=== PATIENT | male | born 1980 | race American Indian/Alaskan Native ===

== ENCOUNTER 2018-12-16 11:45 | Emergency (ER) | payer SELFPAY ==
[2018-12-16 12:02] VITALS: BP 124/77
--- NOTE | 2018-12-16 12:11 | Emergency Department Report ---
Blank Doc - Documentation Documentation: 38 y o male presents to ED cc of fever, cough, stuffy nose and ear draining x yesterday morning. cc of left sided/throat jaw pain cxr Acc to evalutae
--- NOTE | 2018-12-16 12:33 | Emergency Department Report ---
Minor Respiratory - HPI Chief Complaint: Upper Respiratory Infection Stated Complaint: CONGESTION Time Seen by Provider: 12/16/18 11:59 Duration: 2 Days Pain Location: Chest Severity: moderate Minor Respiratory: Yes Rhinorrhea, Yes Able to Tolerate Fluids, Yes Cough, Yes Shortness of Breath, Yes Fever, No Sore Throat, No Ear Pain, No Sick Contacts, No Hemoptysis, No Chest Pain Other History: Patient is a heavy smoker. Patient is coughing productive of yellow to brown sputum. Patient also states he's had fevers and chills. ED Review of Systems ROS: Stated complaint: CONGESTION Other details as noted in HPI Comment: All other systems reviewed and negative ED Past Medical Hx - Social History Smoking Status: Current Every Day Smoker Substance Use Type: Alcohol, Marijuana - Medications Home Medications: Home Medications Medication Instructions Recorded Confirmed Last Taken Type HYDROcodone/ACETAMINOPHEN [[place] 1 each PO Q6HR #20 tablet 02/06/14 Unknown Rx 5/325 Tablet] Ibuprofen [Motrin] 600 mg PO Q8H PRN #60 tablet 02/06/14 Unknown Rx Acetaminophen/Codeine [Tylenol #3] 1 tab PO Q6H PRN #15 tab 11/03/15 Unknown Rx Penicillin Vk [Veetids TAB] 500 mg PO QID #40 tablet 11/03/15 Unknown Rx ALBUTEROL Inhaler (OR & NICU) 2 puff IH QID PRN #1 inhalation 12/16/18 Unknown Rx [ProAir HFA Inhaler] Azithromycin [Zithromax] 250 mg PO DAILY #6 tablet 12/16/18 Unknown Rx guaiFENesin/CODEINE [Robitussin AC] 5 ml PO TID PRN #100 oral.liqd 12/16/18 Unknown Rx predniSONE [Deltasone] 20 mg PO QDAY #5 tab 12/16/18 Unknown Rx Minor Respiratory Exam - Exam General: Vital signs noted. No distress. Alert and acting appropriately. HEENT: Yes Moist Mucous Membranes, No Pharyngeal Erythema, No Pharyngeal Exudates, No Rhinorrhea, No Conjuctival Injection, No Frontal Tenderness, No Maxillary Tenderness Ear: Neither TM Bulge, Neither TM Erythema, Neither EAC Pain, Neither EAC Discharge Neck: Yes Supple, No Adenopathy Lungs: Yes Good Air Exchange, Yes Cough, No Wheezes, No Ronchi, No Stridor, No Labored Respirations, No Retractions, No Use of Accessory Muscles, No Other Abnormal Lung Sounds Heart: Yes Regular, No Murmur Abdomen: Yes Normal Bowel Sounds, No Tenderness, No Peritoneal Signs Skin: No Rash, No Edema Neurologic: Alert and oriented, no deficits. Musculoskeletal: Unremarkable. ED Course Vital Signs 12/16/18 11:59 Temperature 98.7 F Pulse Rate 93 H Respiratory 16 Rate Blood Pressure 124/77 O2 Sat by Pulse 98 Oximetry ED Medical Decision Making - Medical Decision Making Patient to be discharged home with meds for symptomatic relief. I am adding antibiotics because a subjective fever and history of smoking. Critical care attestation.: If time is entered above; I have spent that time in minutes in the direct care of this critically ill patient, excluding procedure time. ED Disposition Clinical Impression: Smoking Acute bronchitis Qualifiers: Bronchitis organism: unspecified organism Qualified Code(s): J20.9 - Acute bronchitis, unspecified Disposition: -01 TO HOME OR SELFCARE Is pt being admited?: No Does the pt Need Aspirin: No Condition: Stable Instructions: Acute Bronchitis (ED), How to Stop Smoking (ED) Referrals: MALGORZATA MCCLENDON MD [Primary Care Provider] - 3-5 Days Time of Disposition: 12:33
--- NOTE | 2018-12-16 13:16 | XRay Report ---
ROUTINE CHEST, TWO VIEWS: HISTORY: Cough, fever. The trachea, heart, mediastinal contour, lung soto and bony thorax are unremarkable. IMPRESSION: Unremarkable chest x-ray.
== END 2018-12-16 12:40 | disposition home or self-care (01) ==
LOC: ED 11:45
DX: J20.9 Acute bronchitis, unspecified (principal); F17.200 Nicotine dependence, unspecified, uncomplicated; F12.10 Cannabis abuse, uncomplicated
CPT/HCPCS: 71046; 99283